=== PATIENT | female | born 1940 | race Caucasian/White ===

== ENCOUNTER 2019-04-14 01:45 | Emergency (ER) | payer OTHER ==
[~2019-04-14] VITALS: Ht 152.4 cm; Wt 70.3 kg
[~2019-04-14 01:45] MED LIST: ANTIVERT12.5 MG PO; APAP650 PO; ARICEPT 5 MG TAB5 MG PO; ARICEPT10 M1 PO; ASPIRIN EC325 MG PO; ASPIRIN325 PO; ATORVASTATIN CA40 MG PO; AUGMENTIN 875875 MG PO; BISACODYL SUPP10 MG RE; CIPROFLOXACIN500 M1 PO; COLACE100 MG PO; DAILY VITAMIN1 EAC5 PO; FLAGYL500 MG PO; LEVOTHYROXINE0.05 MG PO; LISINOPRIL10 MG PO; LOPRESSOR25; MILK OF MA2400 MG/10 PO; NORCO 5-325 TA1 EACH PO; PERCOCET 5-3251 EACH PO; PERCOCET PO; PRAVACHOL20 MG PO; SYNTHROID; TOPROL XL25 MG PO; [UNRECOGNIZED DRUG - OTHER] OTIC; [UNRECOGNIZED DRUG - REMARK]
[2019-04-14] MEDS ORDERED: NAMENDA 10 MG T10 MG PO (02:19)
[2019-04-14] MEDS ORDERED: SEROQUEL 25 MG25 M1 PO (02:20)
[2019-04-14 02:47] LABS: ABSOLUTE NEUTROPHILS 5.5 thou/uL (1.4-8.2); BASOPHILS 0.8 % (0.0-2.0); HEMATOCRIT 40.9 % (37.0-47.0); HEMOGLOBIN 13.6 gm/dL (12.0-15.0); LYMPHOCYTES 14.5 % (24.0-44.0); MCH 29.7 pg (26.0-34.0); MCHC 33.2 g/dL (28.0-37.0); MCV 89.3 fL (80.0-100.0); MONOCYTES 5.1 % (1.0-8.0); PLATELET COUNT 178 thou/uL (150-400); POLYS 78.6 % (36.0-66.0); RBC 4.58 mil/uL (4.20-5.00); RDW 14.3 % (10.5-14.5)
[2019-04-14 03:05] LABS: ANION GAP 13 mmol/L (7-16); BUN 14 mg/dL (7-18); CALCIUM 8.7 mg/dL (8.5-10.1); CHLORIDE 102 mmol/L (98-107); CO2 23 mmol/L (21-32); CREATININE 1.2 mg/dL (0.6-1.0); GLUCOSE 115 mg/dL (74-106); POTASSIUM 3.9 mmol/L (3.5-5.1); SODIUM 138 mmol/L (136-145)
[2019-04-14 03:15] LABS: ALBUMIN 3.4 g/dL (3.4-5.0); DIRECT BILIRUBIN < 0.1 mg/dL (<0.1-0.3); LIPASE 306 U/L (73-393); SGOT 16 U/L (15-37); SGPT 23 U/L (30-65); TOTAL BILIRUBIN 0.3 mg/dL (<0.1-1.0); TOTAL PROTEIN 6.8 g/dL (6.4-8.2); TROPONIN-I <0.06 ng/mL (<0.06)
[2019-04-14] MEDS ORDERED: PROTONIX40 M2 PO (04:19)
[2019-04-14 05:23] VITALS: BP 129/65
--- NOTE | 2019-04-15 17:59 | EKG ---
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: RODERICK : 1940 Requested By: Anthony Andrew Order Number: [id number] MD: Joaquin Pelletier Measurements Intervals [place] Rate: 67 P: 0 MS: 73 QRS: -83 QRSD: 149 T: 100 QT: 447 QTc: 472 Interpretive Statements A-V dual-paced rhythm with some inhibition No further analysis attempted due to paced rhythm Baseline wander in lead(s) III,aVL,aVF Compared to ECG 03/27/2014 11:48:06 No significant changes Electronically Signed On 04-15-2019 17:59:23 CDT by Joaquin Pelletier [email or web address] <ELECTRONICALLY SIGNED> By: Joaquin Pelletier MD, [facility] 04/15/19 1759 [id number] Joaquin Pelletier MD, [facility] /EPI
== END 2019-04-14 04:45 | disposition home or self-care (01) ==
LOC: ER 01:45
PROVIDERS: Emergency Medicine
DX: R07.89 Other chest pain (principal); E03.9 Hypothyroidism, unspecified; I10 Essential (primary) hypertension; Z79.899 Other long term (current) drug therapy; Z95.0 Presence of cardiac pacemaker; Z90.49 Acquired absence of other specified parts of digestive tract